=== PATIENT | male | born 1965 | race Caucasian/White ===

== ENCOUNTER 2021-03-03 15:13 | Observation (INO) | payer OTHER ==
[~2021-03-03] VITALS: Ht 182.9 cm; Wt 85.1 kg
[~2021-03-03 15:13] MED LIST: BACTRIM DS TAB1 EACH PO; HYDROCHLOROTHIA25 MG PO; NORCO 5-325 TA1 EACH PO; THERMAZENE TOP
--- OUTSIDE RECORDS SUMMARY | 2021-03-03 15:16 | XMS ---
PreManage Notification: CORBY GERMAN Security Administrative Intern Events No recent Security Events currently on file [facility] There are no care providers on record at this time. Deuce has no Care Guidelines for this patient. Jeanette VISIT COUNT (12 MO.) 1 [facility]as TOTAL 1 NOTE: Visits indicate total known visits. ED/UCC VISIT TRACKING (12 MO.) 03/03/2021 15:14 [facility] [place] TYPE: Emergency COMPLAINT: - ABNORMAL LABS INPATIENT VISIT TRACKING (12 MO.) No inpatient visits to display in this time frame [email or web address]
[2021-03-03] MEDS ORDERED: DIAZEPAM10 MG PO (16:28)
--- NOTE | 2021-03-03 20:00 | NUR ---
pt ARRIVED TO THE FLOOR VIA ED STRETCHER WITH MILK ROUTE DELIVERER [place]. pt ORIENTED TO ROOM AND CALL LIGHT. pt INSTRUCTED TO USE CALL LIGHT BEFORE GETTING OOB, pt AGREES.NO FURTHER NEEDS, CALL LIGHT IN REACH.
--- NOTE | 2021-03-03 20:22 | NUR ---
THIS RN REVIEWED UNIT 1 OF 3 PRBC WITH SECOND RN DAPHNIE AT BEDSIDE. IV SITE WNL AND FLUSHES EASILY. BLOOD STARTED BY FELISHA ELLER. NO FURTHER NEEDS, CALL LIGHT IN REACH.
--- NOTE | 2021-03-03 20:22 | NUR ---
BLOOD PRODUCT RECEIVED, VS COMPLETED. EDUCATION PROVIDED, BLOOD PRODUCTS CHECKED WITH 2ND RN SHAE, BLOOD PRODUCTS PROVIDED.
--- NOTE | 2021-03-03 21:45 | NUR ---
pt AWAKE AND REPORTS HEARTBURN RELATED PAIN AND STATES, "I GET HEARTBURN IF I DON'T EAT". CLARIFIED ORDERS WITH MD BARNETT, LAURA MOON, pt OKAY TO HAVE GENERAL GENERAL DIET UNTIL 0600 03/04/21. SANDWHICH BOX AND WATER PROVIDED, PRIMARY RN DAPHNIE AWARE. pt REPORTS HE TOOK SOME TUMS FROM HIS , pt AND EDUCATED BY THIS RN TO NOT TAKE ANY MEDICATIONS EVEN OTC UNLESS PROVIDED BY NURSING STAFF. BOTH VERBALIZED UNDERSTANDING, FELISHA ELLER ALSO AWARE. pt DENIES S/SX OF BLOOD INFUSION REACTION. CALL LIGHT IN REACH.
--- NOTE | 2021-03-03 23:06 | NUR ---
FIRST BAG OF RBC COMPLETED. VS TAKEN. PT REPORTS NO PAIN OR OTHER BLOOD REACTION.
--- NOTE | 2021-03-03 23:15 | NUR ---
2ND BAG OF RBC STARTED. BAG AND PT CHECKS COMPLETED WITH SHAE BAEZA. VS TAKEN.
--- NOTE | 2021-03-03 23:56 | NUR ---
PT BED ALARMING, TRYING TO GET OUT OF BED. PT ASSISTED TO BR AND BACK TO BED. HAD SILENCED THE IV PUMP WHEN ALARMING. EDUCATION GIVEN TO AND PT CONCERNING SAFETY, BOTH VERBALIZE UNDERSTANDING. IV BLOOD GOING, BED ALARM ON. CALL LIGHT IN REACH.
--- NOTE | 2021-03-04 00:18 | NUR ---
ASSESSMENT COMPLETED. GCS 15, A&O X4. PT IS DIFFICULT TO GET ANSWERS TO QUESTIONS AND NOT RECEPTIVE TO TEACHING. LUNGS CLEAR. HEART TONES REGULAR. PRN MED GIVEN FOR ANXIETY. ABD SOFT, NONTENDER, BOWEL TONES ACTIVE. ATTEMPTED TO LOOK AT PSORIASIS ON BLE, UNABLE TO SEE ENTIRE LEGS PT HAS ON SWEATS LOWER LEGS HAVE PEELING, BRUISING AND REDNESS. PT STATES HE USES A CREAM ON THEM ONCE A WEEK AND DOES NOT HAVE PAIN. CMS INTACT. IV WNL, CDI, FLUSHED WELL. SKIN IS FRAGILE, WARM, DUSKY. BLOOD PRODUCTS INFUSING. IN ROOM. NO OTHER NEEDS. CALL LIGHT IN REACH, BED ALARM ON.
--- NOTE | 2021-03-04 02:20 | NUR ---
STARTED 3RD BAG OF RBC. PT HAS HAD NO S/S OF A BLOOD TRANSFUSION REACTION. NO OTHER NEEDS AT THIS TIME. CALL LIGHT IN REACH. IN ROOM.
--- NOTE | 2021-03-04 02:47 | NUR ---
PT BED ALARM ALARMING. PT TAKEN TO BR AND BACK TO BED. ICE WATER PROVIDED. NO OTHER NEEDS. CALL LIGHT IN REACH.
--- NOTE | 2021-03-04 04:29 | NUR ---
BLOOD ADMINISTRATION COMPLETED. PT RESTING IN BED, EYES CLOSED. RR EVEN, UNLABORED. VS, I&O AND COMPLETED. LUNGS CLEAR, HEART TONES REGULAR. ABD SOFT, NONTENDER, BOWEL TONES ACTIVE.CMS INTACT. IV WNL, FLUSHED WELL. IN ROOM. CALL LIGHT IN REACH.
--- NOTE | 2021-03-04 05:41 | NUR ---
LABS DRAWN AND SENT.
--- NOTE | 2021-03-04 06:17 | NUR ---
CALL LIGHT ANSWERED, pt AWOKE AND VERBALIZES HEARTBURN. pt NPO, DR MOON CALLED AND UPDATED. PER DR MOON, OKAY TO GIVE PRN NIO MAALOX AT THIS TIME EVEN THOUGH pt IS NPO. pt MADE NPO AT 0600 PER MD ORDERS.
--- NOTE | 2021-03-04 07:30 | NUR ---
RECEIVED REPORT AT 0700, NO NEW CONCERNS NOTED.
--- NOTE | 2021-03-04 08:23 | NUR ---
PT ASLEEP IN CHAIR. IN ROOM. WHITE BOARD UPDATED. CALL LIGHT WITHIN REACH. WILL CHECK BACK LATER.
--- NOTE | 2021-03-04 09:00 | NUR ---
LOBES ARE DIMINISHED BUT PT IS NOT PUTTING MUCH EFFORT INTO DEEP BREATHING. ABD SOUNDS PRESENT, BILATERAL LOWER LEGS HAVE SCATTERED OPEN SORES PRESENT. PT STATED THAT IT WAS PSORIASIS (HAS NOT BEEN CONFIRMED BY MD).
--- NOTE | 2021-03-04 11:00 | NUR ---
PT READY FOR OR. BLOOD IS INFUSING. NO NEW CONCERNS NOTED.
--- NOTE | 2021-03-04 12:52 | NUR ---
03/04/21 1252 Sheets,Magui 1234 PT ARRIVED TO PACU ON 6L VIA MASK, RESP EVEN AND UNLABORED. VSS. PT NONAROUSABLE TO PAINFUL STIMULI. 1248 PT WAKES TO PAINFUL STIMULI AND OPENS HIS EYES, PT FALLS RIGHT BACK TO SLEEP. SMALL AMOUNT OF SNORING NOTED.
--- NOTE | 2021-03-04 13:00 | NUR ---
PT CAME BACK TO FLOOR AT 1230. PT IS AAOX4, IN A VERY GOOD MOOD. DRESSING IS C/D/I. NO NEW CONCERNS NOTED AT THIS TIME.
--- NOTE | 2021-03-04 13:30 | NUR ---
PT ARRIVED TO ROOM 125 FROM SURGERY WITH CARY BAEZA, PT ALERT.
[2021-03-04] MEDS ORDERED: CLOBETASOL EMOL15 GM TOP (13:40)
[2021-03-04] MEDS ORDERED: HYDROCODON-ACE1 EAC8 PO ×2 (13:41→14:41)
[2021-03-04] MEDS ORDERED: TYLENOL325 M1 PO (13:43)
[2021-03-04] MEDS ORDERED: VENTOLIN HFA18 GM (13:47)
[2021-03-04] MEDS ORDERED: IBUPROFEN IB200 MG PO (13:47)
--- NOTE | 2021-03-04 14:21 | CONS ---
[facility] [address] [place], [place] [address] Signed DATE OF CONSULTATION: 03/04/2021 CHIEF COMPLAINT: Fatigue/weakness. HISTORY OF PRESENT ILLNESS: Dameon is a 55-year-old gentleman I have known for quite a number of years. He said he had not been to a doctor over 30 years. 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 He has been losing weight the last four years. At one point, he was up to 400 pounds. He is down to about 188 pounds. He is having increasing fatigue and anorexia the last few weeks. He finally decided to go to a doctor based on the encouragement of his . His told me that she has been through B-cell lymphoma and is doing well. In the office, he was found to be severely anemic with a hemoglobin of 4.7 and a mean cell volume low at 51. In addition, the white count is very low at 1.8. He was asked to go directly to the emergency room. He has been admitted to the Internal Medicine Service. His other blood work so far has been unremarkable. He received 3 units of packed red blood cells last night and he is up to a hemoglobin of 6.7. He has another unit of packed red blood cells pending. The CT scan of chest, abdomen and pelvis showed a 12 mm right hilar lymph node and an unremarkable prostate, but he has large bilateral inguinal lymph nodes as well as some lymph nodes along the iliac chains. He also has psoriasis and has not had any medication for his legs in a while and apparently there were opened and weeping. I was therefore asked to see him to perform one of his lymph node biopsies in the groin. He has severe anxiety at baseline and even worse with needles. He requires benzodiazepine before any blood draws or even starting of an IV. PAST MEDICAL HISTORY: Severe anxiety and psoriasis. PAST SURGICAL HISTORY: None. SOCIAL HISTORY: He chews snuff, but does not smoke. He has a drink of alcohol once in a while. He also uses some marijuana. He is to his , Gracie [phone]. They have one son, who is disabled and is taken care by his mother. They prefer the [facility]. Dr. Michael Wilson is his primary care provider. FAMILY HISTORY: Mom had breast cancer that metastasized. REVIEW OF SYSTEMS: He had 10 systems reviewed. He told me about the psoriasis. Electronically Signed By: MANUEL PANDA MD 03/04/21 1421 PATIENT NAME: DAMEON GERMAN CONSULTATION DATE OF : 67 REPORT #: [id number] PHYSICIAN: MANUEL PANDA MD PCP: MICHAEL WILSON MD REPORT IS CONFIDENTIAL AND NOT TO BE RELEASED WITHOUT AUTHORIZATION [facility] [address] [place], [place] [address] Signed ALLERGIES: None. MEDICATIONS: Clobetasol cream and diazepam before blood draws. PHYSICAL EXAMINATION: VITAL SIGNS: Blood pressure is 133/73, heart rate 90, respiratory rate 20, temperature 97.7, he is 100% on room air. He is 6 feet tall at 85 kg. GENERAL: Dameon is a 55-year-old gentleman who appears thin, cachectic, weak and older than his stated age. His hair is thinned out significantly. LUNGS: Clear to auscultation bilaterally. HEART: Regular rate and rhythm without murmurs. He wants to wait to have me examine abdomen, his testicles, prostate and so forth until he is asleep under anesthesia. In fact, he has declined the nurses to examine anything above the knees. LABORATORY DATA: His white blood count is 1.8, hemoglobin was 4.7, it is up to 6.7 after 3 units of packed red blood cells. Mean cell volume is 51. Platelets are 340. Electrolytes unremarkable. Liver function tests are fine. Alkaline phosphatase is fine. Albumin is good at 3.9. COVID virus is negative. INR is normal. RADIOGRAPHIC STUDIES: A CT scan of the chest, abdomen, pelvis shows that he has a 12 mm right hilar lymph node. He has large bilateral inguinal lymph nodes. There are lymph nodes along the iliac chains. Prostate seems to be unremarkable. ASSESSMENT AND PLAN: Dameon is a 55-year-old gentleman who presents as above with rather significant neutropenia and microcytic anemia. He is feeling a little better after 3 units of packed red blood cells. He also has lymphadenopathy as described. I have been asked to biopsy one of his lymph nodes to initiate his evaluation. Of course, we will be doing this down in operating room. While he is asleep, we will thoroughly examine the area of his skin around front and back legs and pelvis and so forth. I have reviewed this with Dameon and his in detail. Again, she reminded me she has been through lymphoma herself with Dr. Thompson. He has expressed understanding and would like to proceed. Electronically Signed By: MANUEL PANDA MD 03/04/21 1421 PATIENT NAME: DAMEON GERMAN CONSULTATION DATE OF : 67 REPORT #: [id number] PHYSICIAN: MANUEL PANDA MD PCP: MICHAEL WILSON MD REPORT IS CONFIDENTIAL AND NOT TO BE RELEASED WITHOUT AUTHORIZATION [address] [place] [address] Signed MD QUIANA Mahoney/JEFRYL /[id number] cc: MD Manuel Alvarez MD Copies: MICHAEL WILSON DMD, ANDREW L MD ~ Electronically Signed By: MANUEL PANDA MD 03/04/21 1421 PATIENT NAME: DAMEON GERMAN CONSULTATION DATE OF : 67 REPORT #: [id number] PHYSICIAN: MANUEL PANDA MD PCP: MICHAEL WILSON MD REPORT IS CONFIDENTIAL AND NOT TO BE RELEASED WITHOUT AUTHORIZATION
[2021-03-04] MEDS ORDERED: TEMOVATE30 GM TOP (14:43)
[2021-03-04] MEDS ORDERED: TYLENOL325 MG PO (14:44)
[2021-03-04] MEDS ORDERED: MOTRIN IB200 M1 PO (14:44)
--- NOTE | 2021-03-08 08:16 | OR ---
[facility] [address] [place], [place] [address] Signed DATE OF OPERATION: 03/04/2021 SURGEON: Manuel Panda MD PREOPERATIVE DIAGNOSES: 1. Bilateral inguinal lymphadenopathy. 2. Bilateral iliac lymphadenopathy. 3. Weight loss. 4. Neutropenia. 5. Anemia. POSTOPERATIVE DIAGNOSES: 1. Bilateral inguinal lymphadenopathy. 2. Bilateral iliac lymphadenopathy. 3. Weight loss. 4. Neutropenia. 5. Anemia. PROCEDURE: 1. Right inguinal lymph node biopsies x2. 2. Digital rectal exam with exam of the scrotum, testicles, penis, perineum and legs, and feet. ESTIMATED BLOOD LOSS: None. INDICATIONS: Dameon is a 55-year-old gentleman, whom I have known for many years out in the community. He does [employer] work. His stays at home with her disabled son. The last four years, he has had involuntary weight loss. He used to be close to 400 pounds. He is now down to 188 pounds. He was becoming progressively fatigued and anorexic. He has really had no specific fever, chills, or diaphoresis particularly at night. He does suffer with psoriasis, particularly from the bottom of his calf down where he has to wear boots while at work and he uses clobetasol cream with good results. He also has significant anxiety including needles, blood draw, and IV starts. In fact, he has to take lorazepam before having his blood drawn or needle started. His has been through B-cell lymphoma with Dr. Thompson. She grew increasingly alarmed and finally forced him to go see a primary care provider. He has not seen a doctor in 30 years. He was found to be severely anemic with a hemoglobin of 4.7 and a mean cell volume of 51 on his blood draw. His white blood cell count was 1.8. His other laboratory work was Electronically Signed By: MANUEL PANDA MD 03/08/21 0816 PATIENT NAME: DAMEON GERMAN OPERATIVE REPORT DATE OF : 67 REPORT #: [id number] PHYSICIAN: MANUEL PANDA MD PCP: MICHAEL WILSON MD REPORT IS CONFIDENTIAL AND NOT TO BE RELEASED WITHOUT AUTHORIZATION [facility] [address] [place], [place] [address] Signed negative including the alkaline phosphatase. COVID virus was negative. He was sent directly to the emergency room. He had symptomatic anemia. He has received his 4th unit of packed red blood cells by the Internal Medicine Service. CT scan of the chest, abdomen, and pelvis had been performed in the Emergency Room. He has a 12 mm right hilar lymph node. The prostate seems to be unremarkable. He has fairly significant bilateral inguinal lymphadenopathy as well as bilateral iliac chain lymphadenopathy. I was therefore asked to perform a lymph node biopsy to expedite his diagnosis and care. I met with Dameon and his this morning. We reviewed the above findings. I explained to him the nature of the inguinal incision required to remove the lymph nodes. He was very anxious about having anyone examined him in the room. We decided to do a full exam once he was asleep in the operating room. He understands there is risk to surgery including, but not limited to bleeding, infection, scarring, change in contour of the skin, damage to the femoral nerve, femoral artery and femoral vein. He understands that the real possibility of additional treatments based on the pathology results. He had expressed understanding and wished to proceed. PROCEDURE NOTE: Dameon was taken into our operating room and placed in the supine position under LMA general anesthesia. He was given preoperative antibiotics. He had SCDs on his feet. We had examined his abdomen very carefully and felt no palpable masses. We could easily palpate the lymph nodes in both groins. He has a very large lymph node on the left. He had two lymph node [id number] in the right. We decided to use the right groin to obtain two lymph nodes for pathologic review. We had called our pathologist and she was kind enough to come in over the weekend for these fresh samples. He does have some mild psoriasis on his thighs, but from the bottom of the calf down the ankles is quite significant. He said that is common for him. He uses the clobetasol with good results. His feet are very dry and cracked. Both testicles are descended and unremarkable. We found no other skin lesions including the penis itself in the scrotum and perineum. On digital rectal exam, his prostate is not particularly enlarged. It is a little indurated, the left is slightly more prominent than the right. We did not see anything specific around the anus itself. After this, he was prepped and draped in the usual sterile fashion. We utilized a typical oblique infrainguinal incision over the area of the lymph nodes. Two large lymph nodes were removed and placed in saline and taken directly to the Dr. Pope at the Pathology Department. We then injected local anesthetic in and around the lesion. We were careful not to inject right into the femoral nerve. The wound was irrigated and suctioned out until clear. We closed the wound in layers with 3-0 Monocryl sutures. This included the dermis. The skin edges were reapproximated with a running 5-0 fast absorbing plain gut suture. Dry gauze tape was then applied. Dameon was awakened from his anesthesia, extubated in the OR, and taken to the recovery room in stable condition. Electronically Signed By: MANUEL PANDA MD 03/08/21 0816 PATIENT NAME: DAMEON GERMAN OPERATIVE REPORT DATE OF : 67 REPORT #: [id number] PHYSICIAN: MANUEL PANDA MD PCP: MICHAEL WILSON MD REPORT IS CONFIDENTIAL AND NOT TO BE RELEASED WITHOUT AUTHORIZATION [address] [place], [place] [address] Signed Manuel Panda MD ALB/MODL /[id number] cc: MD Michael Mahoney MD Copies: MANUEL PANDA MD, ROBERT D DMD ~ Electronically Signed By: MANUEL PANDA MD 03/08/21 0816 PATIENT NAME: DAMEON GERMAN OPERATIVE REPORT DATE OF : 67 REPORT #: [id number] PHYSICIAN: MANUEL PANDA MD PCP: MICHAEL WILSON MD REPORT IS CONFIDENTIAL AND NOT TO BE RELEASED WITHOUT AUTHORIZATION
== END 2021-03-04 16:40 | disposition home or self-care (01) ==
LOC: ED 15:13 → MS 15:15
PROVIDERS: Colon & Rectal Surgery; ADMIT Internal Medicine; ATTEND Internal Medicine
PROC: 07BH0ZX Excision of Right Inguinal Lymphatic, Open Approach, Diagnostic (ICD-10-PCS; principal; 2021-03-04 11:16)
DX: D50.9 Iron deficiency anemia, unspecified (principal); R59.0 Localized enlarged lymph nodes; F40.231 Fear of injections and transfusions; D70.9 Neutropenia, unspecified; F41.9 Anxiety disorder, unspecified; L40.9 Psoriasis, unspecified; F17.220 Nicotine dependence, chewing tobacco, uncomplicated; Z20.822 Contact with and (suspected) exposure to COVID-19
CPT/HCPCS: 00300; 36430; 71260; 74177; 80053; 80500; 83615; 85014; 85018; 85025; 85045; 85610; 85730; 86850; 86900; 86901; 86922; 99285-25; A9270-GY; C9803; G0378; J0690; J1100; J2001; J2060; J2250; J2405; J2704; J3010; P9016; Q9967; U0003

== ENCOUNTER 2021-03-15 12:25 | Emergency (ER) | payer OTHER ==
[~2021-03-15] VITALS: Ht 182.9 cm; Wt 84.8 kg
[~2021-03-15 12:25] MED LIST changes: +CLOBETASOL EMOL15 GM TOP; +DIAZEPAM10 MG PO; +HYDROCODON-ACE1 EAC8 PO; +IBUPROFEN IB200 MG PO; +MOTRIN IB200 M1 PO; +TEMOVATE30 GM TOP; +TYLENOL325 M1 PO; +TYLENOL325 MG PO; +VENTOLIN HFA18 GM
--- OUTSIDE RECORDS SUMMARY | 2021-03-15 12:32 | XMS ---
PreManage Notification: CORBY GERMAN Security Data Entry Specialist Events No recent Security Events currently on file CRITERIA MET - [facility] - 2 Visits in 30 Days - [facility] CARE PROVIDERS There are no care providers on record at this time. Deuce has no Care Guidelines for this patient. Jeanette VISIT COUNT (12 MO.) 2 [facility] NOTE: Visits indicate total known visits. ED/C VISIT TRACKING (12 MO.) [facility] COMPLAINT: - R LEG SWELLING 03/03/2021 15:14 [facility] [place] TYPE: Emergency COMPLAINT: - ABNORMAL LABS INPATIENT VISIT TRACKING (12 MO.) 03/03/2021 15:15 [facility] [place] TYPE: Observation COMPLAINT: - ANEMIA DIAGNOSES: - Fear of injections and transfusions - Anxiety disorder, unspecified - Localized enlarged lymph nodes - Nicotine dependence, chewing tobacco, uncomplicated - Neutropenia, unspecified - Iron deficiency anemia, unspecified - Psoriasis, unspecified [id number]
== END 2021-03-15 20:33 | disposition short-term general hospital (02) ==
LOC: ED 12:25
DX: L03.115 Cellulitis of right lower limb (principal); D47.Z2 Castleman disease; I82.4Y1 Acute embolism and thrombosis of unspecified deep veins of right proximal lower extremity; I82.4Z1 Acute embolism and thrombosis of unspecified deep veins of right distal lower extremity; Z87.891 Personal history of nicotine dependence; Z20.822 Contact with and (suspected) exposure to COVID-19
CPT/HCPCS: 71045; 80053; 81001; 83605; 85007; 85025; 85610; 85730; 93971; 96365; 96366; 96367; 96375; 99285-25; C9803; J0692; J1644; J2250; J2930; J3370; J7060; U0003

== ENCOUNTER 2021-04-13 10:25 | Day surgery (SDC) | payer OTHER ==
[~2021-04-13] VITALS: Ht 182.9 cm; Wt 89.2 kg
[~2021-04-13 10:25] MED LIST changes: +ELIQUIS5 MG PO
[2021-04-13] MEDS ORDERED: XANAX2 MG PO (10:49)
[2021-04-13] MEDS ORDERED: ATIVAN1 MG PO (10:49)
[2021-04-13] MEDS ORDERED: PREDNISONE20 MG PO (10:51)
[2021-04-13] MEDS ORDERED: PRILOSEC OTC20 MG PO (10:52)
--- NOTE | 2021-04-13 11:45 | NUR ---
DURING ADMISSION PROCESS PT VERY ANXIOUS STATES FEAR OF NEEDLES. MOVING ABOUT IN BED RUBBING HANDS THRU HAIR. TLKING WITH HAND MOVEMENTS.
--- NOTE | 2021-04-13 11:58 | NUR ---
DR SINGH WAS CALLED PT WAS IN EXTREME ANIETY SAYING HE WASNT SURE WHAT WE WOULD PUT THRU NEEDLE WE MIGHT JUST KILL HIM HE JUST DIDNT KNOW. DR SAYS IF NO IV HE WOULD BE CANCELLED FOR BONE MARROW BX. PT DID ALLOW IV AND BLOOD DRAW WAS DONE. NOTIFIED PT COMPLIANT.
--- NOTE | 2021-04-13 12:33 | NUR ---
04/13/21 1233 Juan Luis,Magui 1222 PT ARRIVED TO PACU ON 2L VIA MASK, VSS. PT ASLEEP AND SNORING. 1232 PT WAKES TO TACTILE STIMULI AND IS REORIENTED TO PACU, PT FALLS RIGHT BACK TO SLEEP.
--- NOTE | 2021-04-13 13:22 | NUR ---
1315 PT BACK TO ROOM FROM PACU HE IS VERY SLEEPING, HE WILL WAKE AND RESPOND TO VERBAL COMMANDS BUT FALLS BACK TO SLEEP. DENIES PAIN OR NAUSEA. IS AT BEDSIDE CALL LIGHT WITHIN REACH.
--- NOTE | 2021-04-13 14:01 | NUR ---
1400 PT STILL VERY SLEEPY, IS TRYING TO GET HIM TO STAY AWAKE. HE IS TAKING SIPS OF WATER AND 1 SPOONFULL OF PUDDING THEN FELL BACK TO SLEEP.
--- NOTE | 2021-04-13 14:08 | NUR ---
1405 PT ASKING FOR COFFEE, HE IS LOOKING MORE AWAKE TAKING SMALL SIPS TOLERATES WELL
--- NOTE | 2021-04-13 14:48 | NUR ---
1420 WALKED INTO PT ROOM HE WAS GETTING DRESSED WITH IS WIFES HELP, DISCHARGE INSTRUCTIONS GIVEN TO PT AND BOTH VOICED UNDERSTANDING. PT ALERT AND AWAKE, QUESTIONS WERE ANSWERED TO PTS SATISFACTION,
--- NOTE | 2021-04-17 17:36 | PATH ---
[facility] [place] [facility] [address], [place] [address] Signed SPECIMEN(S): A BONE MARROW - CORE SPECIMEN(S): B BONE MARROW - ASPIRATION SPECIMEN(S): C FLOW CYTOMETRY, EDTA ASP CLINICAL HISTORY: This is a 55-year-old male with idiopathic, multicentric Castleman's disease, new diagnosis. D47.Z2 (Castleman's disease) DIAGNOSIS SUMMARY: A. Peripheral blood - Moderate microcytic hypochromic anemia. - Absolute neutropenia. - Relative lymphocytosis. B. Bone marrow aspirate smears, clot sections (cell block), and trephine biopsy: - Slightly hypercellular bone marrow (50%), with trilineage progressive hematopoiesis. - No definite morphologic features of myelodysplastic syndrome (MDS). - Negative for increase in plasma cells or infiltrative bone marrow processes. - Please see diagnostic comment. DIAGNOSTIC COMMENT: The bone marrow is slightly hypercellular with trilineage progressive hematopoiesis. Neutropenia may be due to autoimmune disorder or could be toxin/drug related. No definite morphologic features of dyshematopoiesis are identified, although morphologic evaluation is suboptimal due to hypocellularity of the bone marrow aspirates. Correlation with pending MDS FISH will be helpful for further assessment. This case has been reviewed and dictated by Martin Torres M.D.FACP, board certified hematopathologist. NA:vlg:C2NR PERIPHERAL BLOOD: HEMOGRAM ([facility], [place], [place]; 04/13/2021): WBCs 4.0 K/uL, RBCs 4.52 K/uL, HGB 8.6 g/dL, HCT 28.7%, MCV 63.5 f/L, MCHC 30.1 g/dL, RDW 32.3%, PLT 171 K/uL, and MPV 8.2 f/L. DIFFERENTIAL (manual): 17% neutrophils, 71% lymphocytes, 10% monocytes, and 2% eosinophils. Absolute neutrophils count: 0.68 K/uL. Absolute lymphocytes count: 2.84 PATIENT NAME: CORBY GERMAN PATHOLOGY DATE OF : 67 REPORT #: [id number] PHYSICIAN: MERA SOLIS PCP: MICHAEL WILSON MD REPORT IS CONFIDENTIAL AND NOT TO BE RELEASED WITHOUT AUTHORIZATION [facility] [address], [place] [address] Signed K/uL. Review of peripheral blood smear and CBC data demonstrate that the RBCs are normal in number and are microcytic with moderate anemia present. No Rouleaux formation is identified. The WBCs are normal in number. Neutropenia is noted and granulocytes show unremarkable morphology. Relative lymphocytosis is present. The lymphocytes are small with mature chromatin and show a spectrum of reactive morphology. The platelets are normal in number and unremarkable in morphology. BONE MARROW: BONE MARROW ASPIRATES SMEARS AND TOUCH IMPRINTS: The bone marrow aspirate smears are markedly hypocellular with rare minute bone marrow particles present. A few scattered hematopoietic elements are seen, including some myeloid and erythroid precursors showing unremarkable morphology. No increase in blasts is identified. No dyshematopoiesis is present. BONE MARROW DIFFERENTIAL (100 CELLS): 2% blasts, 2% promyelocytes, 14% myelocytes, 40% segmented neutrophils, 13% lymphocytes, 1% monocytes, 2% plasma cells, 25% erythroid precursors. BONE MARROW CORE BIOPSY AND CLOT SECTION (CELL BLOCK): The bone marrow core biopsy demonstrates slightly hypercellular bone marrow with averaging cellularity of 50%. Trilineage hematopoiesis is present with progressive ordinary maturation. There are no aggregates, granulomas, or metastatic tumor cells present. No increase in blasts is noted. The megakaryocytes are scattered and appear normal in number and distribution. The clot section shows similar findings. SPECIAL STAINS: Special stains are performed (with appropriately reactive control) and show the following results: - Iron stain (aspirate smears): Absent (no bone marrow particles present). - Iron (clot section/cell block): Absent. - Reticulin stain (block A1): Mild increase in bone marrow reticulin fibrosis. IMMUNOHISTOCHEMICAL STAINS: Immunohistochemical stains are performed on block (A1) (with appropriately reactive control) and show the following results: - CD34: Highlights scattered positive cells with no increase in blasts noted. - CD117: Highlights scattered positive cells with no increase in blasts noted. - MPO: Highlights myeloid precursors with normal pattern of distribution. - CD71: Highlights erythroid precursors with normal pattern of distribution. - Factor VIII: Highlights megakaryocytes with normal number and distribution. PATIENT NAME: CORBY GERMAN PATHOLOGY DATE OF : 67 REPORT #: [id number] PHYSICIAN: MERA PATHOLOGY PCP: MICHAEL WILSON MD REPORT IS CONFIDENTIAL AND NOT TO BE RELEASED WITHOUT AUTHORIZATION [facility] [address] [place] [id number] Signed - CD138: Highlights scattered plasma cells with no significant increase in number or large aggregates present. NA:vlg FLOW CYTOMETRY: Bone marrow aspirate, flow cytometry: - No increase in blasts (1% myeloblasts). - Normal myeloid maturation. - No atypical lymphoid cell population. - See comment. COMMENT: While no hematopoietic abnormality is detected in this study, correlation with clinical, morphologic, and genetic findings is recommended for full interpretation and to assess for disease processes not fully examined by flow cytometry analysis, including myelodysplastic syndrome and myeloproliferative neoplasm. FLOW CYTOMETRY ANALYSIS: FLOW DIFFERENTIAL (% Total CD45 vs. SSC gating): Myeloid 60%; Lymphoid 27%; Monocyte 5%; Dim CD45/Blast: 1.0%. Cell Count: 4.6 x 10*3/uL. POPULATION ANALYSIS: BLASTS: Analysis of the dim CD45 gate demonstrates 1.0% myeloblasts by CD34/CD117. LYMPHOID CELLS: The lymphocyte gate comprises 27% of total events and includes 72% T-cells with a CD4:CD8 ratio of 2.0:1 and normal laureano T-cell antigen expression. 19% of lymphocytes are polyclonal B-cells with a kappa:lambda ratio of 1.5:1. The remainders are NK-cells. MYELOID CELLS: The myeloid population comprises 60% of the total events. No aberrant immunophenotypic expression is detected. MONOCYTES: The monocyte population comprises 5% of the total events. Monocytes are not increased. No aberrant immunophenotypic expression is detected. PLASMA CELLS: 0.3% plasma cells are detected in the screening gate neg-dimCD45/CD38. Plasma cells are CD45 dim and positive for CD19. AN GROSS DESCRIPTION: Two specimens are received in two containers, labeled "GH." A. The specimen, labeled "GH, core," is received in formalin and consists of one cylindrical bone core fragment measuring 0.3 in diameter and 2.2 in length. The specimen is entirely submitted in cassette A1 following decalcification in Immunocal. Cold ischemic time: Cannot be determined because of lack of information PATIENT NAME: CORBY GERMAN PATHOLOGY DATE OF : 67 REPORT #: [id number] PHYSICIAN: MERA PATHOLOGY PCP: MICHAEL WILSON MD REPORT IS CONFIDENTIAL AND NOT TO BE RELEASED WITHOUT AUTHORIZATION [facility] [address], [place] [address] Signed Approximate time in formalin: 7 hours 30 minutes B. The specimen, labeled "GH, clot," is received in formalin and consists of thickened clot material measuring 2.6 x 1.5 x 0.5 in aggregate. The specimen is filtered and entirely submitted in cassette B1. Bone marrow inventory also includes: Three peripheral smears, one EDTA tube bone marrow, two heparin tubes AT (under the direct supervision of a pathologist) The Gross Description was prepared using a voice recognition system. The report was reviewed for accuracy; however, sound-alike word errors, addition and/or deletions may occur. If there is any question about this report, please contact Client Services. ADDITIONAL NOTES: Immunohistochemical and/or in situ hybridization studies were performed on this case with the appropriate positive controls that react as expected. This test was developed and its performance characteristics determined by [employer]. It has not been cleared or approved by the U.S. Food and Drug Administration. The FDA has determined that such clearance or approval is not necessary. This test is used for clinical purposes. It should not be regarded as investigational or for research. [facility] is certified under the Clinical Laboratory Improvement Amendments of 1988 (CLIA) as qualified to perform high complexity clinical laboratory testing. Immunohistochemical and/or in situ hybridization studies were performed on this case with the appropriate positive controls that react as expected. This test was developed and its performance characteristics determined by [facility]. It has not been cleared or approved by the U.S. Food and Drug Administration. The FDA has determined that such clearance or approval is not necessary. This test is used for clinical purposes. It should not be regarded as investigational or for research. [facility] is certified under the Clinical Laboratory Improvement Amendments of 1988 (CLIA) as qualified to perform high complexity clinical laboratory testing. In this case, certain antibodies were performed by both immunohistochemistry and flow cytometry analysis because flow cytometry analysis did not fully explain all the light microscopic findings. Immunohistochemistry aided in the analysis. Both methods are deemed medically PATIENT NAME: CORBY GERMAN PATHOLOGY DATE OF : 67 REPORT #: [id number] PHYSICIAN: MERA SOLIS PCP: MICHAEL WILSON MD REPORT IS CONFIDENTIAL AND NOT TO BE RELEASED WITHOUT AUTHORIZATION [facility] [address] [place] [address] Signed necessary in this case. PERFORMING LABORATORY: The technical component was performed by [facility], [facility] [place] [address] (Compensation/Benefits Specialist: Luca Power D.O.; CLIA#: [id number]. Professional interpretation was performed by [facility], [facility], [address] [place] [id number] (CLIA#: [id number]). The technical component was performed by [facility], [address] [place] [id number] (Compensation/Benefits Specialist: Luca Power D.O.; CLIA#: [id number]). Professional interpretation was performed by [facility], [facility], [address] [place] [id number] (CLIA#: [id number]) IMAGES: A: [id number] A: [id number] Diagnostician: Martin Torres MD, FACP Pathologist Electronically Signed 04/17/2021 Copies: ~ PATIENT NAME: CORBY GERMAN CECE PATHOLOGY DATE OF : 67 REPORT #: [id number] PHYSICIAN: MERA SOLIS PCP: MICHAEL WILSON MD REPORT IS CONFIDENTIAL AND NOT TO BE RELEASED WITHOUT AUTHORIZATION
== END 2021-04-13 14:44 | disposition home or self-care (01) ==
LOC: OPS 10:25 → DS 12:00 → OPS 14:44
PROVIDERS: ATTEND Specialist
PROC: 079T3ZX Drainage of Bone Marrow, Percutaneous Approach, Diagnostic (ICD-10-PCS; 2021-04-13)
PROC: 07DR3ZX Extraction of Iliac Bone Marrow, Percutaneous Approach, Diagnostic (ICD-10-PCS; principal; 2021-04-13 12:00)
DX: D47.Z2 Castleman disease (principal); D50.9 Iron deficiency anemia, unspecified; D70.9 Neutropenia, unspecified; F40.231 Fear of injections and transfusions; F17.220 Nicotine dependence, chewing tobacco, uncomplicated; I82.491 Acute embolism and thrombosis of other specified deep vein of right lower extremity; R10.13 Epigastric pain
CPT/HCPCS: 80053; 80500; 83615; 85007; 85025; 85651; 99153; G0500; J2250; J3010

== ENCOUNTER 2021-04-14 06:38 | Emergency (ER) | payer OTHER ==
[~2021-04-14] VITALS: Ht 182.9 cm; Wt 89.2 kg
[~2021-04-14 06:38] MED LIST changes: +ATIVAN1 MG PO; +PREDNISONE20 MG PO; +PRILOSEC OTC20 MG PO; +XANAX2 MG PO
--- OUTSIDE RECORDS SUMMARY | 2021-04-14 06:40 | XMS ---
PreManage Notification: CORBY GERMAN Security Lamp Developer Events No recent Security Events currently on file CRITERIA MET - [facility] - 2 Visits in 30 Days - [facility] 03/16/2021-Current PHONE: [phone] Deuce has no Care Guidelines for this patient. Jeanette VISIT COUNT (12 MO.) 3 [facility] TOTAL 3 NOTE: Visits indicate total known visits. ED/C VISIT TRACKING (12 MO.) 04/14/2021 06:39 [facility] [place] TYPE: Emergency COMPLAINT: - FALL, POST SURGICAL PROBLEM 03/15/2021 12:26 [facility] [place] TYPE: Emergency COMPLAINT: - R LEG SWELLING DIAGNOSES: - Personal history of nicotine dependence - Pain in right leg - Cellulitis of right lower limb - Acute embolism and thrombosis of unspecified deep veins of right distal lower extremity - Castleman disease - Acute embolism and thrombosis of unspecified deep veins of right proximal lower extremity 03/03/2021 15:14 [facility] [place] TYPE: Emergency COMPLAINT: - ABNORMAL LABS INPATIENT VISIT TRACKING (12 MO.) 03/15/2021 23:00 [facility] TYPE: General Medicine DIAGNOSES: - Castleman disease - Iron deficiency anemia, unspecified - castleman syndrome, low hemoglobin - Acute embolism and thrombosis of unspecified deep veins of unspecified lower extremity - Acute embolism and thrombosis of unspecified deep veins of right distal lower extremity 03/03/2021 15:15 [facility] TYPE: Observation COMPLAINT: - ANEMIA DIAGNOSES: - Fear of injections and transfusions - Anxiety disorder, unspecified - Localized enlarged lymph nodes - Nicotine dependence, chewing tobacco, uncomplicated - Neutropenia, unspecified - Iron deficiency anemia, unspecified - Psoriasis, unspecified [email or web address]
--- NOTE | 2021-04-15 19:29 | EKG ---
[facility] [address] [place] [address] Signed Sinus tachycardia with premature atrial complexes Otherwise normal ECG No previous ECGs available Confirmed by CASSIA ESTRADA MD ([id number]) on 04/15/2021 7:28:58 PM Electronically Signed By: CASSIA ESTRADA MD 04/15/211928 PATIENT NAME: CORBY GERMAN Electrocardiogram DATE OF : 67 PHYSICIAN: CASSIA ESTRADA MD REPORT #: [id number] REPORT IS CONFIDENTIAL AND NOT TO BE RELEASED WITHOUT AUTHORIZATION
== END 2021-04-14 07:53 | disposition left against medical advice (07) ==
LOC: ED 06:38
DX: R41.82 Altered mental status, unspecified (principal); R00.0 Tachycardia, unspecified; D47.Z2 Castleman disease; D64.9 Anemia, unspecified; Z87.891 Personal history of nicotine dependence; Z79.01 Long term (current) use of anticoagulants; Z79.52 Long term (current) use of systemic steroids; Z79.899 Other long term (current) drug therapy
CPT/HCPCS: 71045; 80053; 85025; 93005; 93010; 99285-25

== ENCOUNTER 2021-04-20 13:14 | Emergency (ER) | payer OTHER ==
[~2021-04-20] VITALS: Ht 182.9 cm; Wt 88.9 kg
--- OUTSIDE RECORDS SUMMARY | 2021-04-20 13:16 | XMS ---
PreManage Notification: CORBY GERMAN Security Change Management Analyst Events 1 event(s) in the past 18 months Most recent security events: Elopement at [facility] 04/14/2021 06:39 - Other Details: PATIENT LEFT AMA CRITERIA MET - [facility] - [facility] - 2 Visits in 30 Days CARE PROVIDERS STEVE [facility] 03/16/2021-Current PHONE: [phone] Deuce has no Care Guidelines for this patient. Jeanette VISIT COUNT (12 MO.) 4 [facility]. TOTAL 4 NOTE: Visits indicate total known visits. 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 [place] TYPE: Emergency COMPLAINT: - ABNORMAL LABS INPATIENT VISIT TRACKING (12 MO.) 03/15/2021 23:00 [facility] TYPE: General Medicine DIAGNOSES: - Castleman disease - Iron deficiency anemia, unspecified - castleman syndrome, low hemoglobin - Acute embolism and thrombosis of unspecified deep veins of unspecified lower extremity - Acute embolism and thrombosis of unspecified deep veins of right distal lower extremity 03/03/2021 15:[address] [facility] [place] TYPE: Observation COMPLAINT: - ANEMIA DIAGNOSES: - Fear of injections and transfusions - Anxiety disorder, unspecified - Localized enlarged lymph nodes - Nicotine dependence, chewing tobacco, uncomplicated - Neutropenia, unspecified - Iron deficiency anemia, unspecified - Psoriasis, unspecified [email or web address]
[2021-04-20] MEDS ORDERED: HYDROCODON-ACE1 EA11 PO (15:38)
== END 2021-04-20 15:47 | disposition home or self-care (01) ==
LOC: ED 13:14
DX: S20.211A Contusion of right front wall of thorax, initial encounter (principal); D64.9 Anemia, unspecified; Z87.891 Personal history of nicotine dependence; Z79.01 Long term (current) use of anticoagulants; Z79.899 Other long term (current) drug therapy; Z79.52 Long term (current) use of systemic steroids
CPT/HCPCS: 71250; 99283-25; A9270